=== PATIENT | female | born 1945 | race Hispanic/Latino ===

== ENCOUNTER 2016-11-29 08:29 | Outpatient (CLI) | payer MEDICARE ==
--- NOTE | 2016-11-29 16:30 | Cat Scan Report ---
CT ABDOMEN WITH CONTRAST: 11/29/16 CLINICAL: Epigastric pain and elevated lipase. COMPARISON: None. TECHNIQUE: Volumetric acquisition and 1.25 millimeter scan reconstructions after the uneventful intravenous injection of 100 cc Omnipaque 300. Consent was obtained prior to the administration of contrast. Oral contrast was also given. FINDINGS: Abdomen: The lung bases are clear.Normal liver size, contour and density. No liver mass. Status post cholecystectomy. The intrahepatic bile duct are normal. The common bile duct is slightly dilated and measures 16 mm at the common hepatic duct. However, it tapers distally to the ampulla and there is no evidence of choledocholithiasis. There is a small hiatal hernia. The stomach is otherwise normal. There is a 5 cm diverticulum of the first portion of the duodenum. The pancreas is small with a normal duct. No signs of acute or chronic pancreatitis. The main portal vein and its branches are normal. The SMV and most of the mesenteric veins are normal. The inferior mesenteric vein is not opacified and there is a small string of thrombus extending into the splenic vein which is otherwise widely patent. Normal aorta and inferior vena cava. Normal adrenal glands and kidneys. The renal collecting systems and ureters are nondilated. The imaged portions of small bowel and colon are normal.No mass or ascites. Bone windows demonstrate no bone lesion. IMPRESSION:1. 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 2. No signs of acute or chronic pancreatitis. 3. No signs of liver disease or portal hypertension. 4. Status post cholecystectomy. 5. Small hiatal hernia. 6. No signs of bowel ischemia. I spoke to Dr. Nielsen regarding these findings on 11/29/16 at 16:00.
== END 2016-11-29 08:30 | disposition home or self-care (01) ==
LOC: SPVIMAG 08:29
PROVIDERS: ATTEND Internal Medicine
DX: K44.9 Diaphragmatic hernia without obstruction or gangrene (principal); I81 Portal vein thrombosis; K57.10 Diverticulosis of small intestine without perforation or abscess without bleeding; R74.8 Abnormal levels of other serum enzymes; Z90.49 Acquired absence of other specified parts of digestive tract
CPT/HCPCS: 74160; Q9967

== ENCOUNTER 2017-02-21 09:22 | Outpatient (CLI) | payer MEDICARE ==
--- NOTE | 2017-02-21 13:08 | Cat Scan Report ---
CT scan of abdomen and pelvis with IV contrast: Compared to 11/29/16. History: Portal vein phimosis. Findings: Normal lung bases. No pleural pericardial effusion. Normal liver. No intrahepatic duct dilatation. Dilated common bile duct without interval change. Patient status post cholecystectomy. Normal spleen and pancreas. Normal portal vein.. String of thrombus identified into the splenic vein without interval change. Celiac and superior mesenteric appears normal. Renal arteries and kidneys and adrenals appears normal. No significant interval change of the inferior mesenteric artery compared to previous study. No bowel distention or wall thickening. Stool in colon. No free intraperitoneal fluid. 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
== END 2017-02-21 09:23 | disposition home or self-care (01) ==
LOC: SPVIMAG 09:22
PROVIDERS: ATTEND Internal Medicine Hematology & Oncology
DX: I81 Portal vein thrombosis (principal); Z90.49 Acquired absence of other specified parts of digestive tract
CPT/HCPCS: 74174; Q9967

== ENCOUNTER 2017-06-22 10:34 | Outpatient (CLI) | payer MEDICARE ==
[2017-06-22 11:29] LABS: Blood Urea Nitrogen 12 mg/dL (7-17)
--- NOTE | 2017-06-22 14:06 | Magnetic Resonance Report ---
MRI of the abdomen with and without contrast. History: Evaluate portal vein thrombosis. Procedure: A multisequence multiplanar study was performed with and without contrast. Findings: Comparison is made to previous CT angiography of the abdomen and pelvis on February 21, [address] of the abdomen with contrast on November 29, 2016. The liver, spleen, and pancreas are normal. The gallbladder has been removed. The portal veins are patent. The splenic and superior mesenteric veins also appear patent. (Review of the [address] studies demonstrated a string-like thrombus in the splenic vein. This is not identified on today's study). The kidneys are normal in size and configuration. Minimal left perinephric stranding is present. The adrenal glands are unremarkable. No abnormal enhancing lesions are seen within the solid abdominal viscera. The IVC is patent. Impression: Essentially negative study. The portal vein and branches are patent. The small string of thrombus seen in the splenic vein on [address] examinations is not identified on today's study.
== END 2017-06-22 10:35 | disposition home or self-care (01) ==
LOC: MRI 10:34
PROVIDERS: ATTEND Internal Medicine Hematology & Oncology
DX: I81 Portal vein thrombosis (principal); I82.890 Acute embolism and thrombosis of other specified veins; Z90.49 Acquired absence of other specified parts of digestive tract
CPT/HCPCS: 36415; 74183; 82565; 84520; A9577; C8902; 74185